=== PATIENT | female | born 1970 ===

== ENCOUNTER 2022-03-17 19:30 | Emergency (ER) | payer SELFPAY ==
[~2022-03-17] VITALS: Ht 170.2 cm; Wt 54.5 kg
[2022-03-17 19:40] VITALS: BP 122/78
[2022-03-17] MEDS: FLUORESCEIN SODIUM 1 MG STRIP OU ONE (21:29)
[2022-03-17] MEDS: PROPARACAINE HCL 0.5% 15 ML OPHTHALMIC SOLUTION OU ONE (21:29)
== END 2022-03-17 21:30 | disposition home or self-care (01) ==
LOC: EMS 19:30
DX: T65.893A Toxic effect of other specified substances, assault, initial encounter (principal); H10.213 Acute toxic conjunctivitis, bilateral; F41.9 Anxiety disorder, unspecified; F17.210 Nicotine dependence, cigarettes, uncomplicated; Y92.9 Unspecified place or not applicable
CPT/HCPCS: 99283